=== PATIENT | female | born 1950 | race Caucasian/White ===

== ENCOUNTER 2017-03-21 15:28 | Emergency (ER) | payer OTHER, MEDICARE ==
[~2017-03-21] VITALS: Ht 160 cm; Wt 99.8 kg
[~2017-03-21 15:28] MED LIST: ALEN70TA55 PO; AMIT25TA9 PO; ATO40T PO; FLUO-125 PO; GLIP5TAB77 PO; HYDR25TA4 PO; INDERAL PO; LISI-646 PO; METF-370 PO; OMEP20CA74 PO; PAROXETINE HCL PO; PIOG15TA38; PRO10T PO; PROPRANOLOL HCL PO; TEMA30CA5 PO; VALP250S16 PO
[2017-03-21] MEDS ORDERED: SODIUM CHLORIDE 0.9% 1,000 ML IV ONE (15:35)
[2017-03-21] MEDS ORDERED: MORPHINE SULF INJ 2 MG/ML SYRINGE 1ML IV ONE ×2 (15:45→20:30)
[2017-03-21] MEDS ORDERED: ONDANSETRON HCL 4 MG/2 ML VIAL IV ONE ×2 (15:45→20:30)
[2017-03-21 16:14] LABS: Basophils # (auto) 0 uL; Basophils % (auto) 0.7 % (0.0-2.0); Eosinophils # (auto) 0.1 uL; Eosinophils % (auto) 1.1 % (0.0-7.0); Hematocrit 38.6 % (36.0-46.0); Hemoglobin 12.9 g/dL (12.2-16.2); Lymphocytes % (auto) 14.7 % (10.0-50.0); Mean Corpuscular Hemoglobin 31.2 pg (28.0-32.0); Mean Corpuscular Hgb Conc. 33.3 g/dL (32.0-36.0); Mean Corpuscular Volume 93.5 fL (80.0-100.0); Mean Platelet Volume 8.9 fL (6.9-10.8); Monocytes # (auto) 0.7 uL; Monocytes % (auto) 9.5 % (0.0-12.0); Neutrophils # (auto) 5.3 uL; Nucleated Red Blood Cells % 0.1 %; Platelet Count (auto) 197 10^3/uL (140-450); Red Cell Distribution Width 13.2 % (11.8-14.3); White Blood Cell 7.1 10^3/uL (4.4-10.8)
[2017-03-21 16:15] LABS: BUN/Creatinine Ratio 18.3; Calcium 8.8 mg/dL (8.5-10.1); Potassium 4.2 mmol/L (3.5-5.1)
[2017-03-21 16:18] LABS: Bilirubin, Total 0.5 mg/dL (0.2-1.0); Lactic Acid w/Reflex 4.6 mmol/L (0.4-2.0); Total Protein 6.9 g/dL (6.4-8.2)
[2017-03-21 16:42] LABS: Urine Blood 3+ /uL (Negative); Urine Color PINK (Yellow); Urine Glucose TRACE mg/dL (Normal); Urine Ketone TRACE (Negative); Urine Nitrite Negative (Negative); Urine RBC 2377 /hpf (0 - 4); Urine Squamous Epithelial Cell FEW /hpf (<5); Urine pH 5.5 (5.0-8.0)
[2017-03-21 16:53] LABS: REFLEX LACTIC ACID YES OR NO YES
[2017-03-21 17:03] LABS: Urine Bilirubin Negative (Negative)
[2017-03-21] MEDS ORDERED: LEVOFLOXACIN 500MG 100 ML IV ONE (17:30)
[2017-03-21] MEDS ORDERED: cloNIDine HCL 0.1 MG TAB PO ONE (20:30)
[2017-03-21 21:11] VITALS: BP 167/81
== END 2017-03-21 21:35 | disposition short-term general hospital (02) ==
LOC: ER 15:28 → EDBD 15:28 → ER 21:35
DX: K80.20 Calculus of gallbladder without cholecystitis without obstruction (principal); N39.0 Urinary tract infection, site not specified; A41.4 Sepsis due to anaerobes; I13.0 Hypertensive heart and chronic kidney disease with heart failure and stage 1 through stage 4 chronic kidney disease, or unspecified chronic kidney disease; E11.22 Type 2 diabetes mellitus with diabetic chronic kidney disease; N18.9 Chronic kidney disease, unspecified; I50.9 Heart failure, unspecified; E78.5 Hyperlipidemia, unspecified; Z98.51 Tubal ligation status; Z90.89 Acquired absence of other organs; Z79.899 Other long term (current) drug therapy; Z88.6 Allergy status to analgesic agent; Z88.8 Allergy status to other drugs, medicaments and biological substances
CPT/HCPCS: 36415; 51702; 74176; 80053; 81001; 82150; 83605; 83690; 85025; 87040; 94761; 96365; 96375; 96376; 99285; J1956; J2270; J2405; J7030

== ENCOUNTER 2022-07-06 20:47 | Emergency (ER) | payer MEDICARE, OTHER ==
[~2022-07-06] VITALS: Ht 160 cm; Wt 90.9 kg
[~2022-07-06 20:47] MED LIST changes: -ALEN70TA55 PO; +ALEN70TA74 PO; +AMIT25TA12 PO; -AMIT25TA9 PO; -LISI-646 PO; +LISI20TA28 PO; -PRO10T PO; +PROC10TA2 PO; -VALP250S16 PO; +VALP250S19 PO
[2022-07-06 22:38] LABS: Basophils # (auto) 0 10 ^3/uL (0-0.2); Basophils % (auto) 0.2 % (0.0-2.0); Eosinophils # (auto) 0.1 10 ^3/uL (0-0.8); Eosinophils % (auto) 0.7 % (0.0-7.0); Hematocrit 39.4 % (36.0-46.0); Hemoglobin 12.9 g/dL (12.2-16.2); Lymphocytes % (auto) 9.2 % (10.0-50.0); Mean Corpuscular Hemoglobin 30.7 pg (28.0-32.0); Mean Corpuscular Hgb Conc. 32.8 g/dL (32.0-36.0); Mean Corpuscular Volume 93.6 fL (80.0-100.0); Monocytes # (auto) 0.9 10 ^3/uL (0-1.3); Monocytes % (auto) 8.3 % (0.0-12.0); Neutrophils # (auto) 8.6 10 ^3/uL (1.6-8.6); Neutrophils % (auto) 81.6 % (37.0-80.0); Red Blood Cells 4.21 10^6/uL (4.0-5.20); Red Cell Distribution Width 13.7 % (11.8-14.3); White Blood Cell 10.5 10^3/uL (4.4-10.8)
[2022-07-06 23:20] LABS: BUN/Creatinine Ratio 21.4; Potassium 4.1 mmol/L (3.5-5.1)
[2022-07-06 23:21] LABS: Albumin 3.4 g/dL (3.4-5.0); Bilirubin, Total 0.5 mg/dL (0.2-1.0); Calcium 8.8 mg/dL (8.5-10.1); Total Protein 6.9 g/dL (6.4-8.2)
[2022-07-07] MEDS ORDERED: PROPOFOL 10 MG/ML 20 ML IV ONE (03:15)
[2022-07-07] MEDS ORDERED: PROMETHAZINE HCL 25 MG/ML 1ML IV ONE (09:00)
[2022-07-07] MEDS ORDERED: MORPHINE SULFATE INJ 2 MG/ml SYRG IV ONE (09:00)
[2022-07-07 09:57] VITALS: BP 150/90
== END 2022-07-07 10:02 | disposition short-term general hospital (02) ==
LOC: ER 20:49
DX: S52.501A Unspecified fracture of the lower end of right radius, initial encounter for closed fracture (principal); S52.601A Unspecified fracture of lower end of right ulna, initial encounter for closed fracture; I13.0 Hypertensive heart and chronic kidney disease with heart failure and stage 1 through stage 4 chronic kidney disease, or unspecified chronic kidney disease; E11.22 Type 2 diabetes mellitus with diabetic chronic kidney disease; N18.9 Chronic kidney disease, unspecified; I50.9 Heart failure, unspecified; Z88.6 Allergy status to analgesic agent; Z91.041 Radiographic dye allergy status; Z88.8 Allergy status to other drugs, medicaments and biological substances; Z79.899 Other long term (current) drug therapy; Z90.89 Acquired absence of other organs; Z98.51 Tubal ligation status; Z20.822 Contact with and (suspected) exposure to COVID-19
CPT/HCPCS: 25605; 36415; 70450; 71045; 71250; 72125; 73100; 73110; 74176; 80053; 84484; 85025; 87426; 93005; 96374; 96375; 99152; 99153; 99285; J2270; J2550; J2704; J7030

== ENCOUNTER 2022-10-04 21:14 | Inpatient (IN) | payer OTHER ==
[~2022-10-04] VITALS: Ht 160 cm; Wt 86.3 kg
[2022-10-04] MEDS ORDERED: DEXTROSE 10% 250 ML IV ONE (23:00)
[2022-10-04] MEDS ORDERED: DEXTROSE 10% 1,000 ML IV SCH (23:15)
[2022-10-04 23:18] LABS: Basophils # (auto) 0 10 ^3/uL (0-0.2); Basophils % (auto) 0.1 % (0.0-2.0); Eosinophils # (auto) 0 10 ^3/uL (0-0.8); Eosinophils % (auto) 0.9 % (0.0-7.0); Hematocrit 36.5 % (36.0-46.0); Hemoglobin 12.4 g/dL (12.2-16.2); Lymphocytes # (auto) 0.1 10 ^3/uL (0.4-5.4); Lymphocytes % (auto) 3.6 % (10.0-50.0); Mean Corpuscular Hemoglobin 31.3 pg (28.0-32.0); Mean Corpuscular Hgb Conc. 33.9 g/dL (32.0-36.0); Mean Corpuscular Volume 92.4 fL (80.0-100.0); Monocytes # (auto) 0.1 10 ^3/uL (0-1.3); Monocytes % (auto) 3.1 % (0.0-12.0); Neutrophils # (auto) 3.2 10 ^3/uL (1.6-8.6); Neutrophils % (auto) 92.3 % (37.0-80.0); Nucleated Red Blood Cells % 0.3 %; Red Blood Cells 3.94 10^6/uL (4.0-5.20); Red Cell Distribution Width 14.3 % (11.8-14.3); White Blood Cell 3.5 10^3/uL (4.4-10.8)
[2022-10-04 23:39] LABS: Albumin 2.2 g/dL (3.4-5.0); BUN/Creatinine Ratio 15.1 (10.0-20.0); Calcium 8.6 mg/dL (8.5-10.1)
[2022-10-04 23:42] LABS: Total Protein 6.3 g/dL (6.4-8.2)
[2022-10-05] VITALS (14 sets, daily range): BP systolic 88–154; BP diastolic 31–83
[2022-10-05 00:02] LABS: Potassium 2.6 mmol/L (3.5-5.1)
[2022-10-05] MEDS ORDERED: MIDAZOLAM HCL 5 MG/ML-1ML VIAL ONE (00:50)
[2022-10-05] MEDS ORDERED: ETOMIDATE (2MG/ML) 20ML VIAL IV ONE ×2 (00:50→01:00)
[2022-10-05] MEDS ORDERED: ROCURONIUM 10MG/ML 10ML VIAL IV ONE ×2 (00:51→01:00)
[2022-10-05] MEDS ORDERED: MIDAZOLAM DRIP 50 mg/50mL 50 ML IV ONE (00:51)
[2022-10-05] MEDS ORDERED: DEXTROSE (50%) 50ML SYRG IV ONE (01:00)
[2022-10-05] MEDS ORDERED: MIDAZOLAM HCL 5 MG/ML-1ML VIAL IV ONE (01:00)
[2022-10-05] MEDS: MIDAZOLAM DRIP 50 mg/50mL 50 ML IV SCH ×5 (01:42→23:00)
[2022-10-05] MEDS ORDERED: ACETAMINOPHEN IV 1000 MG/100ML (10MG/ML) IV PRN (02:00)
[2022-10-05] MEDS ORDERED: DEXTROSE 10% 1,000 ML IV ONE (02:00)
[2022-10-05] MEDS ORDERED: ACETAMINOPHEN IV 1000 MG/100ML (10MG/ML) IV ONE (02:15)
[2022-10-05] MEDS ORDERED: PIPERACILLIN-TAZOB 3.375GM 100 ML IV ONE (03:00)
[2022-10-05] MEDS ORDERED: VANCOMYCIN 1GM/250ML 250 ML IV ONE (03:00)
[2022-10-05] MEDS ORDERED: NOREPINEPHRINE 8 MG/250ML KIT 250 ML IV ONE (03:25)
[2022-10-05] MEDS ORDERED: NOREPINEPHRINE 8 MG/250ML KIT 250 ML IV SCH (03:30)
[2022-10-05] MEDS: POTASSIUM CHL 20MEQ/100ML 100 ML IV SCH ×6 (04:10→14:13)
[2022-10-05] MEDS ORDERED: DEXTROSE (50%) 50ML SYRG IV PRN ×2 (06:15→11:30)
[2022-10-05] MEDS: ACCU-CHEK COMFORT CURVE STRIP VI SCH ×7 (06:15→20:12)
[2022-10-05] MEDS ORDERED: VANCOMYCIN PER PHARMACY 0 MG IV SCH (06:15)
[2022-10-05] MEDS: SODIUM CHLORIDE 0.9% 1,000 ML IV SCH ×2 (06:15→09:09)
[2022-10-05] MEDS ORDERED: MORPHINE SULFATE INJ 2 MG/ml SYRG IV PRN (06:30)
[2022-10-05] MEDS ORDERED: NITROGLYCERIN 0.4 MG SL TAB SL PRN (06:30)
[2022-10-05] MEDS ORDERED: DEXTROSE 10% 1,000 ML IV SCH (06:30)
[2022-10-05] MEDS ORDERED: MAGNESIUM SULFATE 1GM/100ML 100 ML IV ONE (06:45)
[2022-10-05 07:37] LABS: Basophils # (auto) 0 10 ^3/uL (0-0.2); Basophils % (auto) 0.1 % (0.0-2.0); Eosinophils # (auto) 0 10 ^3/uL (0-0.8); Hemoglobin 10.6 g/dL (12.2-16.2); Lymphocytes # (auto) 0.1 10 ^3/uL (0.4-5.4); Monocytes # (auto) 0.4 10 ^3/uL (0-1.3); White Blood Cell 6.8 10^3/uL (4.4-10.8)
[2022-10-05 07:39] LABS: Eosinophils % (auto) 0.7 % (0.0-7.0); Mean Corpuscular Hemoglobin 30.9 pg (28.0-32.0); Mean Corpuscular Hgb Conc. 33.2 g/dL (32.0-36.0); Mean Corpuscular Volume 93.1 fL (80.0-100.0); Monocytes % (auto) 5.6 % (0.0-12.0); Neutrophils # (auto) 6.2 10 ^3/uL (1.6-8.6); Neutrophils % (auto) 91.6 % (37.0-80.0); Red Blood Cells 3.44 10^6/uL (4.0-5.20); Red Cell Distribution Width 14.4 % (11.8-14.3)
[2022-10-05 07:50] LABS: Albumin 1.8 g/dL (3.4-5.0); Anion Gap 13 (5-15); Calcium 7.5 mg/dL (8.5-10.1); Carbon Dioxide 18 mmol/L (21-32); Chloride 99 mmol/L (98-107); Magnesium 1.4 mg/dL (1.6-2.6); Sodium 130 mmol/L (136-145)
[2022-10-05 07:56] LABS: Alanine Aminotransferase 56 U/L (13-56); Alkaline Phosphatase 185 U/L (45-117); Aspartate Aminotransferase 106 U/L (15-37); BUN/Creatinine Ratio 9.9 (10.0-20.0); Bilirubin, Total 8.4 mg/dL (0.2-1.0); Blood Urea Nitrogen 15 mg/dL (7-18); Cholesterol < 50 mg/dL (< 200); GFR African American 43 mL/min; GFR Non-African American 36 mL/min; Glucose 214 mg/dL (74-106); HDL Cholesterol 8 mg/dL (40-59); LDL Cholesterol 32 mg/dL (< 100); Triglycerides 105 mg/dL (< 150)
[2022-10-05 07:59] LABS: Urine Bacteria MANY /hpf (None Seen); Urine Blood 3+ /uL (Negative); Urine Budding Yeast MODERATE /hpf (None Seen); Urine Hyaline Cast FEW /lpf (0 - 2); Urine Mucus FEW (None Seen); Urine Specific Gravity 1.022 (1.001-1.035); Urine WBC 102 /hpf (0 - 5)
[2022-10-05 08:04] LABS: Potassium 2.9 mmol/L (3.5-5.1)
[2022-10-05] MEDS ORDERED: POTASSIUM EFFERVESENT TAB 25 MEQ PO ONE (08:15)
[2022-10-05 08:28] LABS: INR 1.71 (0.9-1.15)
[2022-10-05 08:38] LABS: Partial Thromboplastin Time 70.2 sec (24.6-33.4)
[2022-10-05] MEDS ORDERED: ALBUTEROL SULF 2.5 MG/0.5ML(0.5%) NEB SOLN NEB PRN (09:45)
[2022-10-05] MEDS ORDERED: FUROSEMIDE 20 MG/2 ML VIAL IV ONE (09:45)
[2022-10-05] MEDS ORDERED: IPRATROPIUM BROM 0.5 MG/2.5ML INH SOL NEB PRN (09:45)
[2022-10-05] MEDS ORDERED: CEFEPIME 2 GM in D5W 5% 50 ML IV SCH (10:00)
[2022-10-05] MEDS ORDERED: ENOXAPARIN SOD 40 MG/0.4 ML SYRINGE SC SCH (10:00)
[2022-10-05] MEDS: MAGNESIUM SULFATE 1GM/100ML 100 ML IV SCH ×2 (10:33→12:15)
[2022-10-05] MEDS ORDERED: MEROPENEM 1GM IVPB 100 ML IV ONE (11:30)
[2022-10-05] MEDS ORDERED: PANTOPRAZOLE 40 MG/10 ML VIAL INJ IV ONE (11:30)
[2022-10-05] MEDS: ALBUTEROL SULF 2.5 MG/0.5ML(0.5%) NEB SOLN NEB SCH ×3 (12:09→23:43)
[2022-10-05] MEDS: IPRATROPIUM BROM 0.5 MG/2.5ML INH SOL NEB SCH ×3 (12:09→23:43)
[2022-10-05 12:50] LABS: INR 1.62 (0.9-1.15); Partial Thromboplastin Time 67.2 sec (24.6-33.4)
[2022-10-05] MEDS: NOREPINEPHRINE BITARTRATE 16 MG in SODIUM CHL 0.9% 234 ML IV SCH (12:59)
[2022-10-05] MEDS: SODIUM BICARBONATE 50ML VIAL 50 ML in SOD CHL 0.45% 1,000 ML IV SCH ×2 (13:03→22:30)
[2022-10-05] MEDS ORDERED: PIPERACILLIN-TAZOB 3.375GM 100 ML IV SCH (14:00)
[2022-10-05] MEDS ORDERED: VANCOMYCIN 1GM/250ML 250 ML IV SCH (18:00)
[2022-10-05] MEDS: fentaNYL Drip 2500mCg/250mlNS 250 ML IV SCH (19:30)
[2022-10-05] MEDS: MEROPENEM 1GM IVPB 100 ML IV SCH (20:17)
[2022-10-05] MEDS ORDERED: ACETAMINOPHEN 650 mg PER 20.3 mL UD PO PRN (20:30)
[2022-10-05] MEDS ORDERED: METOPROLOL TARTRATE 1MG/1ML-5ML VIAL IV ONE (21:15)
[2022-10-05 21:30] LABS: Albumin 1.6 g/dL (3.4-5.0); BUN/Creatinine Ratio 8.8 (10.0-20.0); Calcium 7.5 mg/dL (8.5-10.1); Magnesium 2.4 mg/dL (1.6-2.6)
[2022-10-05 21:33] LABS: Bilirubin, Total 8.7 mg/dL (0.2-1.0); Total Protein 5.2 g/dL (6.4-8.2)
[2022-10-05] MEDS ORDERED: AMIODARONE 450mg/250ml AE 250 ML IV SCH (22:45)
[2022-10-05] MEDS ORDERED: AMIODARONE HCL 150 MG in D5W 5% 100 ML IV ONE (22:45)
[2022-10-05] MEDS: PHENYLEPHRINE IV 250 ML IV SCH (22:49)
[2022-10-05] MEDS ORDERED: AMIODARONE HCL (50 MG/ ML) 3 ML VIAL IV ONE (23:01)
[2022-10-06] MEDS: ACCU-CHEK COMFORT CURVE STRIP VI SCH ×6 (00:24→12:00)
[2022-10-06 01:50] VITALS: BP 92/59
[2022-10-06] MEDS: NOREPINEPHRINE BITARTRATE 16 MG in SODIUM CHL 0.9% 234 ML IV SCH (02:00)
[2022-10-06 03:57] VITALS: BP 103/86
[2022-10-06] MEDS: PHENYLEPHRINE IV 250 ML IV SCH ×2 (04:00→15:25)
[2022-10-06] MEDS: MIDAZOLAM DRIP 50 mg/50mL 50 ML IV SCH (04:00)
[2022-10-06] MEDS: MEROPENEM 1GM IVPB 100 ML IV SCH ×2 (04:30→09:02)
[2022-10-06] MEDS ORDERED: SODIUM BICARBONATE 8.4 % INJ 50ML VIAL IV ONE ×2 (04:30→05:20)
[2022-10-06] MEDS ORDERED: SODIUM BICARBONATE 50ML VIAL 50 ML, SODIUM BICARBONATE 50ML VIAL 50 ML, SODIUM BICARBON... IV SCH ×4 (04:30→05:15)
[2022-10-06] MEDS ORDERED: AMIODARONE 450mg/250ml AE 250 ML IV SCH (04:45)
[2022-10-06 05:51] LABS: Hematocrit 32.9 % (36.0-46.0); Hemoglobin 10.4 g/dL (12.2-16.2); Mean Corpuscular Hgb Conc. 31.6 g/dL (32.0-36.0)
[2022-10-06 05:54] LABS: Mean Corpuscular Hemoglobin 30.9 pg (28.0-32.0); Mean Corpuscular Volume 97.7 fL (80.0-100.0); Red Blood Cells 3.37 10^6/uL (4.0-5.20); Red Cell Distribution Width 15.4 % (11.8-14.3)
[2022-10-06 06:08] LABS: Basophils % (manual) 0 (0.0-2.0); Blast Cells 0; Eosinophils % (manual) 0 (0-7); Metamyelocytes % 0; Myelocytes % 0; Promyelocytes % 0
[2022-10-06 06:14] VITALS: BP 80/43
[2022-10-06] MEDS: ALBUTEROL SULF 2.5 MG/0.5ML(0.5%) NEB SOLN NEB SCH (06:14)
[2022-10-06] MEDS: IPRATROPIUM BROM 0.5 MG/2.5ML INH SOL NEB SCH ×2 (06:14→12:17)
[2022-10-06 06:21] LABS: Albumin 1.4 g/dL (3.4-5.0); Bilirubin, Total 7.4 mg/dL (0.2-1.0); Calcium 7.1 mg/dL (8.5-10.1); Total Protein 4.6 g/dL (6.4-8.2)
[2022-10-06 07:12] LABS: INR 3.39 (0.9-1.15)
[2022-10-06 07:13] LABS: Partial Thromboplastin Time 49.6 sec (24.6-33.4)
[2022-10-06] MEDS ORDERED: DEXTROSE 10% 1,000 ML IV ONE (07:55)
[2022-10-06 08:30] VITALS: BP 92/66
[2022-10-06] MEDS ORDERED: MEROPENEM 500MG IVPB 100 ML IV ONE (08:58)
[2022-10-06 09:04] LABS: Band Neutrophils % (manual) 3; Lymphocytes % (manual) 18 (10.0-50.0); Monocytes % (manual) 8 (0-12); Reactive Lymphocytes 5
[2022-10-06] MEDS ORDERED: DEXTROSE (25%) 10 ML SYRG IV ONE (10:00)
[2022-10-06] MEDS ORDERED: PANTOPRAZOLE 40 MG/10 ML VIAL INJ IV SCH (10:00)
[2022-10-06] MEDS ORDERED: DEXTROSE 10% 250 ML IV ONE (10:00)
[2022-10-06 10:05] VITALS: BP 94/49
[2022-10-06] MEDS ORDERED: NOREPINEPHRINE 8 MG/250ML KIT 250 ML IV ONE (10:23)
[2022-10-06] MEDS ORDERED: SODIUM BICARBONATE 50ML VIAL 150 ML in SOD CHL 0.45% 1,000 ML IV SCH (10:30)
[2022-10-06] MEDS ORDERED: SODIUM BICARBONATE 50ML VIAL 150 ML in D5W 5% 1,000 ML IV SCH (10:45)
[2022-10-06] MEDS ORDERED: VASOPRESSIN 20 UNITS in SODIUM CHL 0.9% 99 ML IV SCH (10:45)
[2022-10-06] MEDS ORDERED: PHYTONADIONE (VIT K)10 MG/ML 1ML VIAL SUBCUT ONE (10:45)
[2022-10-06] MEDS: fentaNYL Drip 2500mCg/250mlNS 250 ML IV SCH (11:30)
[2022-10-06] MEDS ORDERED: ATROPINE SULFATE 1 MG/1 ML VIAL ONE (12:55)
[2022-10-06 13:30] VITALS: BP 26/12
[2022-10-06] MEDS ORDERED: ATROPINE SULF 1 MG/10ml SYR IV ONE (18:45)
[2022-10-07] MEDS ORDERED: DEXTROSE 10% 1,000 ML IV SCH (10:00)
[2022-10-07 10:48] LABS: Hepatitis B Surface Antibody Negative (Negative)
[2022-10-07 11:16] LABS: Hepatitis A Total Antibody Negative (Negative)
[2022-10-07 14:13] LABS: Hepatitis C Antibody Negative (Negative)
== END 2022-10-06 13:38 | DRG 871 ==
LOC: EDBD 21:14 → ER 21:14 → DOU IN ICU 10-05 06:37 → TELE 10-05 07:16
PROVIDERS: ADMIT Registered Nurse; ATTEND Internal Medicine
PROC: 5A1945Z Respiratory Ventilation, 24-96 Consecutive Hours (ICD-10-PCS; principal; 2022-10-05)
PROC: 0BH17EZ Insertion of Endotracheal Airway into Trachea, Via Natural or Artificial Opening (ICD-10-PCS; 2022-10-05)
PROC: 0F9430Z Drainage of Gallbladder with Drainage Device, Percutaneous Approach (ICD-10-PCS; 2022-10-05)
DX: A41.9 Sepsis, unspecified organism (principal); G93.41 Metabolic encephalopathy; J96.00 Acute respiratory failure, unspecified whether with hypoxia or hypercapnia; R65.21 Severe sepsis with septic shock; E87.1 Hypo-osmolality and hyponatremia; N17.9 Acute kidney failure, unspecified; N30.00 Acute cystitis without hematuria; D68.59 Other primary thrombophilia; I13.0 Hypertensive heart and chronic kidney disease with heart failure and stage 1 through stage 4 chronic kidney disease, or unspecified chronic kidney disease; K80.00 Calculus of gallbladder with acute cholecystitis without obstruction; F32.A Depression, unspecified; I71.40 Abdominal aortic aneurysm, without rupture, unspecified; E11.22 Type 2 diabetes mellitus with diabetic chronic kidney disease; I48.91 Unspecified atrial fibrillation; E11.649 Type 2 diabetes mellitus with hypoglycemia without coma; E78.5 Hyperlipidemia, unspecified; E87.6 Hypokalemia; C50.911 Malignant neoplasm of unspecified site of right female breast; E86.1 Hypovolemia; E83.42 Hypomagnesemia; M81.0 Age-related osteoporosis without current pathological fracture; N18.31 Chronic kidney disease, stage 3a; Z85.3 Personal history of malignant neoplasm of breast; Z88.6 Allergy status to analgesic agent; Z92.21 Personal history of antineoplastic chemotherapy; Z88.5 Allergy status to narcotic agent; Z88.8 Allergy status to other drugs, medicaments and biological substances; Z91.041 Radiographic dye allergy status; Z80.6 Family history of leukemia
CPT/HCPCS: 31500; 36415; 36600; 70450; 71045; 71250; 74176; 76705; 76942; 80053; 80061; 80202; 81001; 81241; 82140; 82805; 82962; 82977; 83036; 83605; 83690; 83735; 83880; 84132; 84443; 84484; 85007; 85025; 85027; 85610; 85730; 86704; 86706; 86708; 86803; 86850; 86900; 86901; 87040; 87070; 87077; 87086; 87088; 87147; 87186; 87205; 87340; 93005; 93306; 94002; 94003; 94640; 99152; 99291; C9113; G0378; J0131; J0461; J2185; J2250; J2543; J3480; J7060